=== PATIENT | male | born 1965 | race Caucasian/White ===

== ENCOUNTER 2024-08-19 12:55 | Observation (INO) | payer OTHER ==
[2024-08-19] MEDS ORDERED: ACETAMINOPHEN INJECTION 100 ML ONE (16:07)
[2024-08-19] MEDS: SODIUM CHLORIDE 0.9% 500 ML INFUS.BAG IV ONE (16:28)
[2024-08-19] MEDS: ACETAMINOPHEN 1000 MG/100 ML BAG IVPB ONE (16:28)
[2024-08-19 16:36] LABS: ABSOLUTE IMMATURE GRANULOCYTES 0.04 x10^3/uL (0.0-0.031); BASOPHILS # 0.06 x10^3/uL (0.01-0.08); EOSINOPHIL % 0.6 % (0.8-7.0); EOSINOPHILS # 0.06 x10^3/uL (0.04-0.54); HEMATOCRIT 42.6 % (40.1-51.0); HEMOGLOBIN 13.5 g/dL (13.7-17.5); MCHC 31.7 g/dl (32.3-36.5); MEAN PLT VOLUME 9.2 fl (9.4-12.4); MONOCYTE # 1.46 x10^3/uL (0.30-0.82); MONOCYTE % 13.7 % (5.3-12.2); PLATELET COUNT 521 x10^3/uL (163-337); RDW 22.8 % (12.2-16.1)
[2024-08-19 16:37] LABS: VENOUS BASE EXCESS 1.6 mmol/L (-2-2); VENOUS O2 SATURATION 89.3 % (70-80); VENOUS PH 7.453 (7.310-7.410)
[2024-08-19 16:42] LABS: INR 1.09 (0.83-1.09)
[2024-08-19 16:44] LABS: ACTIVATED PTT 22.9 SECONDS (25.2-36.5)
[2024-08-19 16:56] LABS: POTASSIUM 3.8 mmol/L (3.5-5.1)
[2024-08-19 17:02] LABS: ALBUMIN 3.2 g/dl (3.4-5.0); BLOOD UREA NITROGEN 14.2 mg/dL (7-18); CALCIUM 9.7 mg/dL (8.5-10.1)
[2024-08-19 17:05] LABS: BILIRUBIN,TOTAL 0.3 mg/dL (0.2-1)
[2024-08-19 17:06] LABS: TOT PROT 6.7 g/dl (6.4-8.2)
[2024-08-19] MEDS ORDERED: KETOROLAC TROMETHAMINE 15 MG/ML VIAL ONE (18:21)
[2024-08-19] MEDS: KETOROLAC TROMETHAMINE 15 MG/ML VIAL IVPUSH ONE (18:30)
[2024-08-20] MEDS ORDERED: APIXABAN 5 MG TABLET ONE ×3 (00:05→20:58)
[2024-08-20] MEDS ORDERED: levETIRAcetam 500 MG TABLET (FP) PO ONE ×3 (00:05→20:58)
[2024-08-20] MEDS ORDERED: PIPERACILLIN/TAZOB 3.375 GM 3.375 GM/50 ML BAG IVPB ONE ×3 (00:05→18:19)
[2024-08-20] MEDS: levETIRAcetam 500 MG TABLET (FP) PO SCH (00:22)
[2024-08-20] MEDS: PIPERACILLIN/TAZOB 3.375 GM 3.375 GM in DEXTROSE 5%-WATER - 50 ML IVPB SCH (00:22)
[2024-08-20] MEDS: APIXABAN 5 MG TABLET PO SCH (00:22)
[2024-08-20] MEDS: PIPERACILLIN/TAZOB 3.375 GM 50 ML IVPB SCH (00:37)
[2024-08-20] MEDS ORDERED: KETOROLAC TROMETHAMINE 15 MG/ML VIAL ONE (01:06)
[2024-08-20] MEDS: KETOROLAC TROMETHAMINE 15 MG/ML VIAL IVPUSH ONE (01:09)
[2024-08-20] MEDS ORDERED: MORPHINE SULFATE 2 MG/ML SYRINGE ONE ×2 (02:02→12:04)
[2024-08-20] MEDS ORDERED: lamoTRIgine 100 MG TABLET ONE ×3 (02:02→20:58)
[2024-08-20] MEDS: lamoTRIgine 100 MG TABLET PO SCH (02:10)
[2024-08-20] MEDS: morphine CARPU-JECT 4 MG/1 ML DISP.SYRIN IVPUSH PRN (02:10)
[2024-08-20] MEDS: guaiFENesin 600 MG TABLET.ER (FP) PO PRN (03:14)
[2024-08-20 07:44] LABS: ABSOLUTE IMMATURE GRANULOCYTES 0.05 x10^3/uL (0.0-0.031); BASOPHILS # 0.06 x10^3/uL (0.01-0.08); EOSINOPHIL % 1.5 % (0.8-7.0); EOSINOPHILS # 0.13 x10^3/uL (0.04-0.54); HEMATOCRIT 38.7 % (40.1-51.0); HEMOGLOBIN 12.4 g/dL (13.7-17.5); MEAN CELL VOLUME 82.3 fl (79.0-92.2); MONOCYTE # 1.51 x10^3/uL (0.30-0.82); MONOCYTE % 17.7 % (5.3-12.2); PLATELET COUNT 478 x10^3/uL (163-337); RDW 22.5 % (12.2-16.1)
[2024-08-20 07:57] LABS: POTASSIUM 3.8 mmol/L (3.5-5.1)
[2024-08-20 07:58] LABS: CALCIUM 9.3 mg/dL (8.5-10.1)
[2024-08-20 07:59] LABS: BLOOD UREA NITROGEN 13.2 mg/dL (7-18)
[2024-08-20 08:02] LABS: CREATININE 0.8 mg/dL (0.55-1.3)
[2024-08-20 09:02] LABS: COCAINE, UR NEGATIVE (NEGATIVE); METHADONE, UR NEGATIVE (NEGATIVE); PHENCYCLIDINE,URINE NEGATIVE (NEGATIVE); URINE AMPHETAMINES NEGATIVE (NEGATIVE); URINE BARBITURATES NEGATIVE (NEGATIVE); URINE BENZODIAZEPINES NEGATIVE (NEGATIVE)
[2024-08-20 09:03] LABS: OPIATES, URI POSITIVE (NEGATIVE)
[2024-08-20] MEDS ORDERED: METOPROLOL TARTRATE 25 MG TABLET (FP) PO SCH (10:00)
[2024-08-20] MEDS ORDERED: ROSUVASTATIN CA 10 MG TABLET PO SCH (10:00)
[2024-08-20] MEDS ORDERED: EZETIMIBE 10 MG TABLET (FP) PO SCH (10:00)
[2024-08-20] MEDS ORDERED: METOPROLOL TARTRATE 25 MG TABLET (FP) ONE ×2 (10:20→20:58)
[2024-08-20] MEDS ORDERED: LOSARTAN POTASSIUM 50 MG TABLET ONE (10:21)
[2024-08-20] MEDS ORDERED: TAMSULOSIN HCL 0.4 MG CAP ONE (10:22)
[2024-08-20] MEDS ORDERED: SERTRALINE HCL 50 MG TABLET (FP) ONE (10:22)
[2024-08-20] MEDS: SERTRALINE HCL 50 MG TABLET (FP) PO SCH (10:53)
[2024-08-20] MEDS: FINASTERIDE 5 MG TABLET (FP) PO SCH (10:53)
[2024-08-20] MEDS: METOPROLOL TARTRATE 25 MG TABLET (FP) PO SCH (10:53)
[2024-08-20] MEDS: LACTATED RINGERS SOLUTION 1,000 ML/1,000 ML INFUS.BAG IV SCH (10:53)
[2024-08-20] MEDS: LOSARTAN POTASSIUM 50 MG TABLET PO SCH (10:53)
[2024-08-20] MEDS: TAMSULOSIN HCL 0.4 MG CAP PO SCH (10:53)
[2024-08-20] MEDS: MORPHINE SULFATE 2 MG/ML SYRINGE IVPUSH PRN (12:16)
[2024-08-20] MEDS ORDERED: clonazePAM 0.25 MG ODT TABLETS SL ONE (16:21)
[2024-08-20] MEDS: clonazePAM 0.25 MG ODT TABLETS SL ONE (16:25)
[2024-08-20] MEDS ORDERED: CEFTRIAXONE 1 G/50 ML PREMIX 50 ML IVPB ONE (20:57)
[2024-08-20] MEDS: CEFTRIAXONE 1 G/50 ML PREMIX 50 ML IVPB SCH (21:06)
[2024-08-20] MEDS: AZITHROMYCIN IVPB 500 MG/250 ML BAG IVPB SCH ×2 (21:14→22:06)
[2024-08-21 02:13] VITALS: BMI 26.8
[2024-08-21 09:33] LABS: ABSOLUTE IMMATURE GRANULOCYTES 0.15 x10^3/uL (0.0-0.031); BASOPHILS # 0.06 x10^3/uL (0.01-0.08); EOSINOPHIL % 2.2 % (0.8-7.0); EOSINOPHILS # 0.24 x10^3/uL (0.04-0.54); HEMATOCRIT 39.9 % (40.1-51.0); HEMOGLOBIN 12.4 g/dL (13.7-17.5); MCHC 31.1 g/dl (32.3-36.5); MEAN PLT VOLUME 8.6 fl (9.4-12.4); MONOCYTE # 1.29 x10^3/uL (0.30-0.82); MONOCYTE % 11.7 % (5.3-12.2); PLATELET COUNT 472 x10^3/uL (163-337); RDW 22.8 % (12.2-16.1)
[2024-08-21 09:56] LABS: POTASSIUM 4.2 mmol/L (3.5-5.1)
[2024-08-21 09:59] LABS: ALBUMIN 2.8 g/dl (3.4-5.0); BLOOD UREA NITROGEN 7.3 mg/dL (7-18)
[2024-08-21 10:02] LABS: CREATININE 0.9 mg/dL (0.55-1.3)
[2024-08-21 10:03] LABS: BILIRUBIN,TOTAL 0.3 mg/dL (0.2-1); TOT PROT 5.8 g/dl (6.4-8.2)
[2024-08-21] MEDS: LIDOCAINE 5% TOPICAL PATCH TP SCH (17:01)
[2024-08-21] MEDS: LORazepam 2 MG/ML SDV VIAL IVPUSH ONE (17:50)
[2024-08-21] MEDS: LIDOCAINE PATCH REMOVAL MC SCH (21:41)
[2024-08-22 06:48] LABS: ABSOLUTE IMMATURE GRANULOCYTES 0.18 x10^3/uL (0.0-0.031); BASOPHILS # 0.08 x10^3/uL (0.01-0.08); EOSINOPHIL % 2.1 % (0.8-7.0); EOSINOPHILS # 0.22 x10^3/uL (0.04-0.54); HEMATOCRIT 41.4 % (40.1-51.0); HEMOGLOBIN 13.2 g/dL (13.7-17.5); MCHC 31.9 g/dl (32.3-36.5); MEAN CELL VOLUME 83.8 fl (79.0-92.2); MEAN PLT VOLUME 9.1 fl (9.4-12.4); MONOCYTE # 1.88 x10^3/uL (0.30-0.82); MONOCYTE % 18.3 % (5.3-12.2); PLATELET COUNT 523 x10^3/uL (163-337)
[2024-08-22 07:01] LABS: POTASSIUM 4.7 mmol/L (3.5-5.1)
[2024-08-22 07:05] LABS: ALBUMIN 2.8 g/dl (3.4-5.0); BLOOD UREA NITROGEN 8.3 mg/dL (7-18); CALCIUM 9.4 mg/dL (8.5-10.1); MAGNESIUM 2.2 mg/dL (1.8-2.4)
[2024-08-22 07:08] LABS: CREATININE 0.9 mg/dL (0.55-1.3)
[2024-08-22 07:10] LABS: BILIRUBIN,TOTAL 0.3 mg/dL (0.2-1); TOT PROT 6.2 g/dl (6.4-8.2)
[2024-08-22 12:04] LABS: HIV INTERPRETATION NEGATIVE (NEGATIVE)
[2024-08-22] MEDS: LORazepam 1 MG TABLET PO PRN (13:05)
[2024-08-22] MEDS: methylPREDNISolone NA SUCC 40 MG/1 ML VIAL IVPUSH SCH (13:53)
[2024-08-22] MEDS: ALBUTEROL SO4 2.5/IPRATROPIUM 0.5 INH SOL 3 ML VIAL.NEB. NEB SCH (16:13)
[2024-08-23 06:52] LABS: BASOPHILS # 0.02 x10^3/uL (0.01-0.08); HEMATOCRIT 41.6 % (40.1-51.0); HEMOGLOBIN 13.1 g/dL (13.7-17.5); MCHC 31.5 g/dl (32.3-36.5); MEAN CELL VOLUME 82.9 fl (79.0-92.2); MEAN PLT VOLUME 8.8 fl (9.4-12.4); MONOCYTE # 0.27 x10^3/uL (0.30-0.82); MONOCYTE % 2.6 % (5.3-12.2); PLATELET COUNT 568 x10^3/uL (163-337)
[2024-08-23 07:33] LABS: POTASSIUM 5.1 mmol/L (3.5-5.1)
[2024-08-23 07:35] LABS: CALCIUM 9.6 mg/dL (8.5-10.1)
[2024-08-23 07:36] LABS: ALBUMIN 2.8 g/dl (3.4-5.0); BLOOD UREA NITROGEN 14.4 mg/dL (7-18); MAGNESIUM 2.1 mg/dL (1.8-2.4)
[2024-08-23 07:39] LABS: CREATININE 0.9 mg/dL (0.55-1.3)
[2024-08-23 07:40] LABS: BILIRUBIN,TOTAL 0.3 mg/dL (0.2-1); TOT PROT 6.3 g/dl (6.4-8.2)
[2024-08-24] MEDS: CycloBENZAprine HCL 10 MG TABLET (FP) PO ONE (00:49)
[2024-08-24] MEDS: methylPREDNISolone NA SUCC 40 MG/1 ML VIAL IVPUSH SCH (06:32)
[2024-08-24 06:49] LABS: BASOPHILS # 0.03 x10^3/uL (0.01-0.08); HEMATOCRIT 41.2 % (40.1-51.0); MCHC 31.6 g/dl (32.3-36.5); MEAN CELL VOLUME 84.4 fl (79.0-92.2); MEAN PLT VOLUME 9.5 fl (9.4-12.4); MONOCYTE # 0.86 x10^3/uL (0.30-0.82); MONOCYTE % 4.6 % (5.3-12.2); PLATELET COUNT 569 x10^3/uL (163-337)
[2024-08-24 07:06] LABS: POTASSIUM 5.3 mmol/L (3.5-5.1)
[2024-08-24 07:13] LABS: CALCIUM 9.8 mg/dL (8.5-10.1)
[2024-08-24 07:14] LABS: ALBUMIN 2.9 g/dl (3.4-5.0); MAGNESIUM 2.1 mg/dL (1.8-2.4)
[2024-08-24 07:17] LABS: CREATININE 0.9 mg/dL (0.55-1.3)
[2024-08-24 07:18] LABS: BILIRUBIN,TOTAL 0.3 mg/dL (0.2-1)
[2024-08-24 07:19] LABS: TOT PROT 6.2 g/dl (6.4-8.2)
[2024-08-24] MEDS: traMADol HCL 50 MG TABLET PO PRN (10:33)
[2024-08-24] MEDS: predniSONE 20 MG TABLET (UD) PO SCH (10:34)
[2024-08-24 15:12] VITALS: BP 126/80; PULSE 95; RESP 16; TEMP 98.1
== END 2024-08-24 17:33 | disposition home or self-care (01) ==
LOC: JER 12:55 → JERBED 18:57 → J4S 08-20 21:28
PROVIDERS: ADMIT Hospitalist; ATTEND Physician Assistant
PROC: 3E0F7GC Introduction of Other Therapeutic Substance into Respiratory Tract, Via Natural or Artificial Opening (ICD-10-PCS; principal; 2024-08-19)
PROC: 3E0333Z Introduction of Anti-inflammatory into Peripheral Vein, Percutaneous Approach (ICD-10-PCS; 2024-08-19)
PROC: 3E0337Z Introduction of Electrolytic and Water Balance Substance into Peripheral Vein, Percutaneous Approach (ICD-10-PCS; 2024-08-19)
PROC: 3E033NZ Introduction of Analgesics, Hypnotics, Sedatives into Peripheral Vein, Percutaneous Approach (ICD-10-PCS; 2024-08-19)
DX: J18.9 Pneumonia, unspecified organism (principal); R06.00 Dyspnea, unspecified; I48.91 Unspecified atrial fibrillation; G40.909 Epilepsy, unspecified, not intractable, without status epilepticus; D72.829 Elevated white blood cell count, unspecified; D75.839 Thrombocytosis, unspecified; Z79.01 Long term (current) use of anticoagulants; I25.2 Old myocardial infarction; Z98.1 Arthrodesis status; Z87.891 Personal history of nicotine dependence; Z86.73 Personal history of transient ischemic attack (TIA), and cerebral infarction without residual deficits
CPT/HCPCS: 0241U-QW; 36415; 71046-TC-FY; 71250-TC; 80048; 80053; 80175; 80177; 80307; 82803; 82962; 83735; 84132; 84439; 84443; 84484; 85025; 85610; 85730; 86480; 87070; 87116; 87205; 87206; 87389; 93005; 93010; 93306-TC; 94640; 96365; 96366; 96367; 96375; 96376; 99285-25; G0378; J0131